=== PATIENT | male | born 1975 | race Caucasian/White ===

== ENCOUNTER 2019-10-21 16:43 | Emergency (ER) | payer OTHER ==
[~2019-10-21] VITALS: Ht 177.8 cm; Wt 80.0 kg
[2019-10-21 16:56] VITALS: BP 172/104
--- NOTE | 2019-10-21 17:04 | PHYS DOC ---
Past Medical History Past Medical History: Hypertension, Seizure Additional Past Medical Histor: DEVELOPMENTALLY SLOW Past Surgical History: No Surgical History Alcohol Use: None Adult General Chief Complaint Chief Complaint: WRIST PAIN HPI HPI Patient is a 44 year old male who presents with a fall after he was walking on snow and slipped about 1:00 PM today. He tried to catch himself his right hand/wrist. The patient states that since he fell he's been having pain to the right wrist. The patient also has swelling to the right wrist. The patient rates his pain as 9 out of 10 in severity and sharp. Complete ROS were reviewed and found to be within normal limits, except as documented in the HPI Current Medications Current Medications Current Medications Medications (Trade) Dose Ordered Sig/Lauryn Start Time Stop Time Status Last Admin Dose Admin Acetaminophen/ Hydrocodone Bitart (Lortab 5/325) 1 tab 1X STAT 10/21/19 17:01 10/21/19 17:03 DC 10/21/19 17:26 1 TAB Allergies Allergies Allergies Coded Allergies Type Severity Reaction Last Updated Verified No Known Drug Allergies 10/21/19 No Physical Exam Physical Exam Constitutional: Well developed, well nourished, no acute distress, non-toxic appearance. [] HENT: Normocephalic, atraumatic, bilateral external ears normal, oropharynx moist, no oral exudates, nose normal. [] Eyes: PERRLA, EOMI, conjunctiva normal, no discharge. [] Neck: Normal range of motion, no tenderness, supple, no stridor. [] Extremities: Tenderness to R wrist on medial side with edema. Neurovascular intact. Neurologic: Alert and oriented X 3, normal motor function, normal sensory function, no focal deficits noted. [] Psychologic: Affect normal, judgement normal, mood normal. [] Current Patient Data Vital Signs Vital Signs Date Time Temp Pulse Resp B/P (MAP) Pulse Ox O2 Delivery O2 Flow Rate FiO2 10/21/19 17:26 18 96 Room Air 10/21/19 16:56 97.8 87 172/104 (126) 97.8 EKG EKG [] Radiology/Procedures Radiology/Procedures [][facility] [address] [place] [address] IMAGING REPORT Signed PATIENT: CATALINA BLACK ACCOUNT: [id number] : 1975 LOCATION: ER AGE: 44 SEX: M EXAM STATUS: PRE ER ORD. PHYSICIAN: ALEX LARRY APRN REASON: fall PROCEDURE: WRIST 3V RIGHT 3 view study of the right wrist Clinical indications: Fall and pain FINDINGS: There is a transverse fracture of the distal right radial metaphysis. There is mild dorsal displacement of the distal epiphysis of 4 mm. There is mild anterior angulation of the apex of the fracture resulting in mild dorsal angulation of the radiocarpal articulation. Radial carpal articulation is maintained otherwise. There is a nondisplaced fracture of the ulnar styloid process. Scaphoid bone is intact. No lytic process is seen. IMPRESSION: Post traumatic fractures of distal right radius and ulna. Electronically signed by: Dylon Mason MD (10/21/2019 5:35 PM) [facility] DICTATED and SIGNED BY: DYLON MASON MD DATE: 10/21/191734 Course & Med Decision Making Course & Med Decision Making Pertinent Labs and Imaging studies reviewed. (See chart for details) Will get imaging and give medication. Patient has distal radius and ulna fractures. Discussed case with Dr. Burrows. Will place in Sugar tong splint and have follow up with him in clinic. Dragon Disclaimer Dragon Disclaimer This electronic medical record was generated, in whole or in part, using a voice recognition dictation system. Departure Departure Impression: Primary Impression: Distal radius fracture, right Additional Impression: Ulna distal fracture Disposition: HOME, SELF-CARE Condition: STABLE Referrals: ANNIE BURROWS MD Additional Instructions: Thank you for visiting [facility]. We appreciate you trusting us with your care. If any additional problems come up don't hesitate to return to visit us. Please follow up with your primary care provider so they can plan additional care if needed and know about the problem that you had. If symptoms worsen come back to the Emergency Department. Any concerning symptoms that start such as chest pain, shortness of air, weakness or numbness on one side of the body, running high fevers or any other concerning symptoms return to the ER. Please fill your medications at any pharmacy and follow the prescription instructions. Please follow up with Dr. Burrows in his clinic. Scripts Ondansetron (ONDANSETRON ODT) 4 Mg Tab.rapdis 1 TAB PO PRN Q6-8HRS PRN for NAUSEA, #16 TAB Prov: ALEX LARRY APRN 10/21/19 Hydrocodone/Apap 5-325 (NORCO 5-325 TABLET) 1 Each Tablet 1 TAB PO PRN Q6HRS PRN for PAIN for 3 Days, #12 TAB 0 Refills Prov: ALEX LARRY APRN 10/21/19 Problem Qualifiers Primary Impression: Distal radius fracture, right Encounter type: initial encounter Fracture type: closed Additional Impression: Ulna distal fracture Encounter type: initial encounter Fracture type: closed Fracture morphology: unspecified fracture morphology Laterality: right Qualified Codes: S52.601A - Unspecified fracture of lower end of right ulna, initial encounter for closed fracture ALEX LARRY APRN Oct 21, 2019 17:04
[2019-10-21] MEDS: HYDROcodone/APAP 5/325MG 1 TAB TABLET PO STA (17:26)
--- NOTE | 2019-10-21 17:38 | RAD ---
3 view study of the right wrist Clinical indications: Fall and pain FINDINGS: There is a transverse fracture of the distal right radial metaphysis. There is mild dorsal displacement of the distal epiphysis of 4 mm. There is mild anterior angulation of the apex of the fracture resulting in mild dorsal angulation of the radiocarpal articulation. Radial carpal articulation is maintained otherwise. There is a nondisplaced fracture of the ulnar styloid process. Scaphoid bone is intact. No lytic process is seen. IMPRESSION: Post traumatic fractures of distal right radius and ulna. Electronically signed by: Calvin Mason MD (10/21/2019 5:35 PM) [place] [id number]
[2019-10-21] MEDS ORDERED: ONDA4TAB12 PO (17:58)
[2019-10-21] MEDS ORDERED: HYDR-3164 PO (17:58)
== END 2019-10-21 18:35 | disposition home or self-care (01) ==
LOC: ER 16:43
DX: S52.501A Unspecified fracture of the lower end of right radius, initial encounter for closed fracture (principal); S52.601A Unspecified fracture of lower end of right ulna, initial encounter for closed fracture; I10 Essential (primary) hypertension; W01.0XXA Fall on same level from slipping, tripping and stumbling without subsequent striking against object, initial encounter; Y93.01 Activity, walking, marching and hiking; Y92.89 Other specified places as the place of occurrence of the external cause; Y99.8 Other external cause status
CPT/HCPCS: 29125; 73110; 99284

== ENCOUNTER 2019-10-29 12:32 | Day surgery (SDC) | payer MEDICARE, OTHER ==
[~2019-10-29] VITALS: Ht 172.7 cm; Wt 88.5 kg
[~2019-10-29 12:32] MED LIST: CHOL200027 PO; ESCITALOPRAM OX10 MG PO; HYDR-3164 PO; HYDROmorphone 2 MG/ML VIAL IV PRN; IBUP-1027 PO; IV RINGERS,LACTATED 1000ML 1,000 ML IV SCH; LIDOCAINE 1% PF 2 ML VIAL. ID PRN; LISI-334 PO; LORA10TA3 PO; MORPHINE SULFATE 2 MG/ML VIAL. IV PRN; ONDA4TAB12 PO; ONDANSETRON PF 4 MG/2 ML VIAL. IV PRN; PHEN200C3 PO; PROCHLORPERAZINE 10 MG/2 ML VIAL. IV PRN; VERA240C2 PO; fentaNYL PF VIAL 100 MCG/2 ML VIAL IV PRN
--- NOTE | 2019-10-29 13:29 | PDOC1 ---
History and Physical Date of Admission Date of Admission DATE: 10/29/19 TIME: 13:22 Identification/Chief Complaint Chief Complaint right wrist Colles fracture Source Source: Caregiver, Chart review, Patient History of Present Illness History of Present Illness Tay is a 44-year-old right-handed man here with his caregiver regarding right distal radius and ulna fracture. 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 He was seen in the ER on 10/21/19 after slipping and falling backwards while walking on snow. He tried to catch himself with his wrist while falling and was later diagnosed with a right distal radius/ulna fracture. Currently, he states that he notices soreness in his wrist. He notes that his splint made his arm itch. Denies metal/nickel allergy. 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 Family History Family History mother 07/2016 Social History Smoke: No ALCOHOL: occassional Current Medications Current Medications Current Medications Ondansetron HCl (Zofran) 4 mg PRN Q6HRS PRN IV NAUSEA/VOMITING; Start 10/29/19 at 07:00; Stop 10/30/19 at 06:59 Fentanyl Citrate (Fentanyl 2ml Vial) 25 mcg PRN Q5MIN PRN IV MILD PAIN 1-3; Start 10/29/19 at 07:00; Stop 10/30/19 at 06:59 Fentanyl Citrate (Fentanyl 2ml Vial) 50 mcg PRN Q5MIN PRN IV MODERATE TO SEVERE PAIN; Start 10/29/19 at 07:00; Stop 10/30/19 at 06:59 Morphine Sulfate (Morphine Sulfate) 1 mg PRN Q10MIN PRN IV SEVERE PAIN 7-10; Start 10/29/19 at 07:00; Stop 10/30/19 at 06:59 Ringer's Solution 1,000 ml @ 30 mls/hr Q24H IV Last administered on 10/29/19at 13:11; Start 10/29/19 at 07:00; Stop 10/29/19 at 18:59 Lidocaine HCl (Xylocaine-Mpf 1% 2ml Vial) 2 ml PRN 1X PRN ID PRIOR TO IV START; Start 10/29/19 at 07:00; Stop 10/30/19 at 06:59 Hydromorphone HCl (Dilaudid) 0.5 mg PRN Q10MIN PRN IV SEV PAIN, Second choice; Start 10/29/19 at 07:00; Stop 10/30/19 at 06:59 Prochlorperazine Edisylate (Compazine) 5 mg PACU PRN PRN IV NAUSEA, MRX1; Start 10/29/19 at 07:00; Stop 10/30/19 at 06:59 Cefazolin Sodium/ Dextrose 50 ml @ 100 mls/hr 1X PREOP PRN IV PRIOR TO PROCEDURE; Start 10/29/19 at 06:00; Stop 10/29/19 at 18:00 Active Scripts Active Reported Ibuprofen 400 Mg Tablet 400 Mg PO PRN Q6HRS PRN Phenytoin Sodium Extended 200 Mg Capsule 200 Mg PO BID Verapamil Er (Verapamil Hcl) 240 Mg Cap24h.pel 120 Mg PO DAILY Vitamin D3 (Cholecalciferol (Vitamin D3)) 2,000 Unit Tablet 2,000 Unit PO DAILY Lisinopril 20 Mg Tablet 20 Mg PO DAILY Escitalopram Oxalate 10 Mg Tablet 10 Mg PO DAILY Loratadine 10 Mg Tablet 10 Mg PO HS Allergies Allergies: Coded Allergies: No Known Drug Allergies (Unverified , 10/29/19) ROS Review of System OPHTHALMOLOGY Blurred vision none. Double vision denies. Change in vision none. ENT Hearing loss none. Change in voice denies. Rhinorrhea none. CARDIOLOGY Palpitations none. Shortness of breath denies. Chest pain denies. CONSTITUTIONAL Fever denies. Chills denies. Weight gain denies. Weakness none. weight loss denies. Fatigue none. GASTROENTEROLOGY Diarrhea denies. Vomiting none. Dysphagia none. UROLOGY Voiding normally yes. Hematuria none. MUSCULOSKELETAL Chronic back or neck pain denies. Swelling of the feet, hands, ankles and /or legs denies. Joint pain reports Right Wrist. Tingling/numbness no. DERMATOLOGY Rash denies. Lumps none. NEUROLOGY Dizziness/lightheadedness denies. Double vision, temporary blindness denies. Tingling/numbness none. PSYCHOLOGY Change in mood or personality denies. Memory loss none. ENDOCRINOLOGY Obesity denies. Fatigue none. Weight loss none. HEMATOLOGY/LYMPH Hepatitis denies. Enlarged lymph nodes denies. Physical Exam General: Alert, Cooperative HEENT: Atraumatic Lungs: Normal air movement Heart: RRR Abdomen: Soft Extremities: No cyanosis, Other (The RIGHT wrist is in a splint which was removed for the exam. There is swelling at the wrist area. The alignment is near normal. There is obvious tenderness at the wrist. Motion is decreased but there is no evidence of specific neurovascular injury. Capillary refill is normal. Pulse is not assessable due to the tenderness of the wrist. Light touch sensation is intact. Motor function is present for the radial ulnar and median nerves. There is no tenderness at the elbow. The skin is intact over the fracture but there is some ecchymosis) Skin: No significant lesion Neuro: Normal speech, Sensation intact Psych/Mental Status: Mood NL Vitals Vitals Vital Signs Date Time Temp Pulse Resp B/P (MAP) Pulse Ox O2 Delivery O2 Flow Rate FiO2 10/29/19 12:53 98.4 99 20 146/86 97 Room Air 98.4 Images Images [facility] [address] [place] [address] IMAGING REPORT Signed PATIENT: TAY BLACK ACCOUNT: [id number] : 1975 LOCATION: ER AGE: 44 SEX: M EXAM STATUS: PRE ER ORD. PHYSICIAN: ALEX LARRY APRN REASON: fall PROCEDURE: WRIST 3V RIGHT 3 view study of the right wrist Clinical indications: Fall and pain FINDINGS: There is a transverse fracture of the distal right radial metaphysis. There is mild dorsal displacement of the distal epiphysis of 4 mm. There is mild anterior angulation of the apex of the fracture resulting in mild dorsal angulation of the radiocarpal articulation. Radial carpal articulation is maintained otherwise. There is a nondisplaced fracture of the ulnar styloid process. Scaphoid bone is intact. No lytic process is seen. IMPRESSION: Post traumatic fractures of distal right radius and ulna. Electronically signed by: Dylon Mason MD (10/21/2019 5:35 PM) [place] [id number] DICTATED and SIGNED BY: DYLON MASON MD DATE: 10/21/19 1730 VTE Prophylaxis Ordered VTE Prophylaxis Devices: Yes VTE Pharmacological Prophylaxi: No Assessment/Plan Assessment/Plan * Colles' fracture of right radius, initial encounter for closed fracture - S52.531A (Primary) * Closed nondisplaced fracture of styloid process of right ulna, initial encounter - S52.982S He has a displaced extra-articular fracture of his right distal radius and a nondisplaced ulnar styloid fracture. I splinted his wrist, we reviewed the options for treatment, and I recommended ORIF surgery. We discussed potential risks of ORIF surgery, including risks of bleeding, infection, malunion, nonunion, potential need for hardware removal, neurovascular injury, tendon injury or other potential surgical or anesthetic complications. We also dis cussed postoperative treatment and expectations. All of his questions were answered and he desires to proceed with surgery. ANNIE CHARLES MD Oct 29, 2019 13:28
[2019-10-29] MEDS ORDERED: LIDOCAINE 2% PF 5 ML VIAL. ONE (13:44)
[2019-10-29] MEDS ORDERED: PROPOFOL 20 ML IV ONE ×2 (13:44→14:28)
[2019-10-29] MEDS ORDERED: MIDAZOLAM HCL/PF 2 MG/2 ML VIAL. ONE (13:46)
[2019-10-29] MEDS ORDERED: DEXAMETHASONE SOD PHOS 4 MG/ML VIAL ONE (13:46)
[2019-10-29] MEDS ORDERED: ONDANSETRON PF 4 MG/2 ML VIAL. ONE (13:46)
[2019-10-29] MEDS ORDERED: fentaNYL PF VIAL 100 MCG/2 ML VIAL ONE ×2 (13:46→15:43)
[2019-10-29] MEDS ORDERED: BUPIVACAINE-EPI 0.25%-1:200000 MPF 30 ML VIAL. ONE (13:52)
[2019-10-29] MEDS ORDERED: ceFAZolin 2GM PREMIX 2 GM/50 ML BAG IV ONE (14:00)
[2019-10-29] MEDS ORDERED: SEVOFLURANE 61 TO 120 MINUTES. IH ONE (14:20)
--- NOTE | 2019-10-29 15:36 | PDOC4 ---
Operative Note Operative Note Date of Procedure: October 29, 2019 Preoperative diagnosis: Closed Colles' fracture of right radius, initial encounter - S52.531A Postoperative diagnosis: Closed Colles' fracture of right radius, initial encounter - S52.531A Procedure: Open treatment of distal radial extra-articular fracture, with internal fixation CPT 70169 Surgeon: Annie Burrows MD. Anesthesia Type: General EBL: 25 mL Specimens: none Drains: none Complications: none Tourniquet time: 34 minutes Tourniquet pressure: 275 mm Hg Implants: [employer] VariAx 2 Distal Radius Plating System INDICATION FOR PROCEDURE: The patient is a 44-year-old who fell and had a displaced right distal radius fracture. I recommended open treatment with internal fixation. We talked about potential risks of surgery such as bleeding, infection, stiffness, need for hardware removal or other potential surgical or anesthetic complications. The patient and his rolloff truck driver stated understanding of the risks, benefits and alternatives. Written consent was obtained and he desired to proceed with surgery. PROCEDURE IN DETAIL: The patient was identified in the preoperative holding ar jackie. The correct right wrist was marked by me. The patient was taken to the operating room, where a general anesthetic was used. Preoperative antibiotics were given intravenously. A timeout procedure was performed. Tourniquet was used on the upper right arm. The limb was prepared in sterile fashion with ChloraPrep, and sterile drapes were applied. An Esmarch bandage was used to exs anguinate the limb and the tourniquet was inflated. The volar approach of [place] was used distally. Sharp dissection was used and Bovie electrocautery was used as needed for hemostasis. The flexor carpi radialis tendon was retracted ulnarly to protect the median nerve. The brachioradialis was retracted radially to protect the radial artery. My chemical plant technical director used small Hohmann retractors on the radial side of the distal fragment and ulnar side of the proximal fragment to help maintain reduction. A Weitlaner ret ractor was also placed. Subperiosteal dissection of the pronator quadratus was performed after an L incision was made and the muscle was reflected across the fracture site. The fracture was easily identified and was translated and angulated. Fracture hematoma was cleared with curettes, rongeurs, and irrigation. I performed a reduction first using a [place] elevator to disimpact the fragments, and using longitudinal traction, and volar to palmar compression, the fracture was able to be reduced as confirmed on the image intensifier. The reduction was stabilized with one K wire prior to plate application. The small image intensifier device was used to check the reduction, and I used the image intensifier throughout the case and interpreted all of the images myself. I then applied the volar plate, placed a single nonlocking screw in the oval hole, and again checked the position of the plate on the image intensifier. I adjusted the plate as needed for satisfactory alignment and fixation. An olive wire was placed through the plate distally for evaluation of the distal alignment. I placed a nonlocking screw distally to compress the plate to the bone. I placed additional locking screws distally and locking screws proximally and I confirmed the reduction with the image intensifier. Final locking screws were placed in the proximal portion of the plate, and into the shaft. After satisfactory reduction and satisfactory fixation with all the screws, final images were taken. Copious irrigation was used. The tourniquet was released and Bovie electrocautery was used for hemostasis. Bupivacaine 0.25% with epinephrine was injected. The incision was closed with 3-0 Vicryl in the subcutaneous tissues and 3-0 Prolene in the skin by mt. Xeroform and a sterile dressing and a volar splint were applied. Needle and sponge counts were correct. There were no apparent complications. ANNIE BURROWS MD Oct 29, 2019 15:36
[2019-10-29] MEDS ORDERED: OXYC-325 PO (15:49)
[2019-10-29] MEDS ORDERED: PROM25TA10 PO (15:49)
[2019-10-29 16:05] VITALS: BP 138/84
== END 2019-10-29 16:30 | disposition home or self-care (01) ==
LOC: SURG 12:32
PROVIDERS: ATTEND Orthopaedic Surgery
DX: S52.531A Colles' fracture of right radius, initial encounter for closed fracture (principal); S52.614A Nondisplaced fracture of right ulna styloid process, initial encounter for closed fracture; I10 Essential (primary) hypertension; E55.9 Vitamin D deficiency, unspecified; F31.9 Bipolar disorder, unspecified; F79 Unspecified intellectual disabilities; X36.1XXA Avalanche, landslide, or mudslide, initial encounter; Y93.01 Activity, walking, marching and hiking; Y92.69 Other specified industrial and construction area as the place of occurrence of the external cause; Z79.899 Other long term (current) drug therapy
CPT/HCPCS: 25607; A7015; C1713; J0696; J1100; J2001; J2250; J2405; J2704; J3010